=== PATIENT | male | born 1990 | race African-American/Black ===

== ENCOUNTER → 2022-06-25 | Outpatient (CLI) | payer OTHER ==
[~2022-06-25] MED LIST: BUPR150T12 PO; DOCU100C16 PO; DOXY100T; FAMO20TA PO; LEXA5TAB13 PO; MELO15TA28 PO; MUSCCRE9 TOP; OLOP5DRO16 OU; PANT20TA6 PO; POLY510P14; PROHANCE 279.3MG/ML 15ML VIAL As Ordered ONE; REFR0.1D OU
== END ==
LOC: M RAD 14:26
PROVIDERS: ATTEND Physician Assistant
DX: H90.41 Sensorineural hearing loss, unilateral, right ear, with unrestricted hearing on the contralateral side (principal)
CPT/HCPCS: 70553; A9576

== ENCOUNTER 2022-07-01 10:04 | Day surgery (SDC) | payer OTHER ==
[~2022-07-01] VITALS: Ht 170.2 cm; Wt 75.5 kg
[~2022-07-01 10:04] MED LIST changes: +NS 1,000 ML IV ONE; -PROHANCE 279.3MG/ML 15ML VIAL As Ordered ONE
[2022-07-01] MEDS ORDERED: LIDOCAINE 2% 100MG/5ML SDV (FOR ANES.) As Ordered ONE (12:10)
[2022-07-01] MEDS ORDERED: fentaNYL 100 MCG/2 ML INJECTION As Ordered ONE (12:10)
[2022-07-01] MEDS ORDERED: propofoL 200 MG/20 ML VIAL As Ordered ONE (12:10)
[2022-07-01 12:59] VITALS: BP 121/83
== END 2022-07-01 13:11 | disposition home or self-care (01) ==
LOC: M OPP 10:04
PROVIDERS: ATTEND Internal Medicine Gastroenterology
DX: K64.0 First degree hemorrhoids (principal); K63.89 Other specified diseases of intestine; K30 Functional dyspepsia; K29.70 Gastritis, unspecified, without bleeding; K22.89 Other specified disease of esophagus; K75.81 Nonalcoholic steatohepatitis (NASH); E11.9 Type 2 diabetes mellitus without complications; G47.30 Sleep apnea, unspecified; M19.90 Unspecified osteoarthritis, unspecified site; F32.9 Major depressive disorder, single episode, unspecified; J45.909 Unspecified asthma, uncomplicated; F17.290 Nicotine dependence, other tobacco product, uncomplicated; Z79.2 Long term (current) use of antibiotics; Z79.899 Other long term (current) drug therapy
CPT/HCPCS: 43239; 45380; 88305; J3010

== ENCOUNTER → 2022-10-04 | Outpatient (CLI) | payer OTHER ==
[~2022-10-04] MED LIST changes: -NS 1,000 ML IV ONE
== END ==
LOC: M RAD 07:00
PROVIDERS: ATTEND Podiatrist Foot & Ankle Surgery
DX: M76.60 Achilles tendinitis, unspecified leg (principal); M77.30 Calcaneal spur, unspecified foot